=== PATIENT | female | born 1950 | race Caucasian/White ===

== ENCOUNTER 2022-01-03 02:45 | Observation (INO) | payer MEDICARE ==
[2022-01-03] MEDS ORDERED: Morphine 4 MG/ML VIAL ONE ×2 (03:28→04:51)
[2022-01-03] MEDS ORDERED: Ondansetron PF 4 MG/2 ML Vial ONE (03:28)
[2022-01-03 03:30] LABS: #Basophils 0.1 10x3/uL (0.0-0.2); #Eosinphils 0.3 10x3/uL (0.0-0.5); #Monocytes 0.6 10x3/uL (0.0-1.1); #Neutrophils 6.2 10x3/uL (1.5-8.4); %Basophils 0.6 % (0.0-2.0); %Eosinophils 3.5 % (0.0-6.0); %Lymphocytes 16.5 % (18.0-47.0); %Monocytes 7.4 % (0.0-10.0); %Neutrophils 71.7 % (40.0-75.0); Hemoglobin 13.4 g/dL (12.0-15.5); Mean Corpuscular Hemoglobin 29.4 pg (27.0-33.0); Mean Platelet Volume 9.7 fl (7.4-10.4); Platelet Count 235 10x3/uL (150-450); RBC Distribution Width 13.2 % (11.5-14.5); Red Blood Cell (RBC) Count 4.56 10x6/uL (3.90-5.03); White Blood Cell (WBC) Count 8.6 10x3/uL (3.5-10.5)
[2022-01-03 03:52] LABS: ALT (SGPT) 72 U/L (8-55); AST (SGOT) 129 U/L (5-34); Albumin 3.5 g/dL (3.4-4.8); Alkaline Phosphatase 93 U/L (40-110); Anion Gap 18 mmol/L (10-20); BUN (Urea Nitrogen) 19 mg/dL (9.8-20.1); Calc. Creatinine Clearance 0 mL/min (70-130); Carbon Dioxide 24 mmol/L (23-31); Chloride 103 mmol/L (98-107); Glucose 120 mg/dL (83-110); Lipase 18 U/L (8-78); Potassium 3.7 mmol/L (3.5-5.1); Protein, Total 6.5 g/dL (5.8-8.1); Sodium 141 mmol/L (136-145)
[2022-01-03 08:27] VITALS: BMI 29.7
[2022-01-03] MEDS ORDERED: Acetaminophen 325 MG TAB PO PRN (10:10)
[2022-01-03] MEDS ORDERED: Ondansetron PF 4 MG/2 ML Vial IVP PRN (10:11)
[2022-01-03] MEDS ORDERED: hydrALAZINE 20 MG/ML VIAL SLOW IVP PRN (10:11)
[2022-01-03] MEDS ORDERED: Morphine 4 MG/ML VIAL SLOW IVP PRN (10:12)
[2022-01-03 12:05] LABS: Hep B Surf Ag Non-Reactive S/CO (NonReactive)
[2022-01-03 12:16] LABS: HBSAg Index 0.18 S/CO (0-0.99)
[2022-01-03 17:31] LABS: HBCM Index 0.07 S/CO (0-0.79); Hep A IgM AB Non-Reactive (NonReactive); Hep A IgM S/CO 0.23 S/CO (0-0.79); Hep C IgG Ab Non-Reactive (NonReactive); Hep C Index 0.09 S/CO (0-0.79); Hepatitis B Core IgM Abs Non-Reactive (NonReactive)
[2022-01-04 05:51] LABS: #Basophils 0.1 10x3/uL (0.0-0.2); #Eosinphils 0.4 10x3/uL (0.0-0.5); #Monocytes 0.6 10x3/uL (0.0-1.1); #Neutrophils 3.6 10x3/uL (1.5-8.4); %Basophils 0.8 % (0.0-2.0); %Eosinophils 6.4 % (0.0-6.0); %Lymphocytes 27.1 % (18.0-47.0); %Monocytes 9.7 % (0.0-10.0); %Neutrophils 55.7 % (40.0-75.0); Hemoglobin 11.8 g/dL (12.0-15.5); Mean Corpuscular HGB CONC 32.2 g/dL (32.0-36.0); Mean Corpuscular Hemoglobin 29.2 pg (27.0-33.0); Mean Corpuscular Volume 90.6 fl (81.6-98.3); Mean Platelet Volume 10.3 fl (7.4-10.4); Platelet Count 211 10x3/uL (150-450); RBC Distribution Width 13.2 % (11.5-14.5); Red Blood Cell (RBC) Count 4.04 10x6/uL (3.90-5.03); White Blood Cell (WBC) Count 6.4 10x3/uL (3.5-10.5)
[2022-01-04 06:04] LABS: ALT (SGPT) 160 U/L (8-55); AST (SGOT) 100 U/L (5-34); Alkaline Phosphatase 106 U/L (40-110); Anion Gap 15 mmol/L (10-20); BUN (Urea Nitrogen) 18 mg/dL (9.8-20.1); Bilirubin, Total 0.3 mg/dL (0.2-1.2); Calc. Creatinine Clearance 86 mL/min (70-130); Calcium 8.4 mg/dL (7.8-10.44); Carbon Dioxide 26 mmol/L (23-31); Chloride 104 mmol/L (98-107); Globulin 2.8 g/dL (2.4-3.5); Glucose 126 mg/dL (83-110); Potassium 3.8 mmol/L (3.5-5.1); Protein, Total 5.8 g/dL (5.8-8.1); Sodium 141 mmol/L (136-145)
[2022-01-04 08:15] LABS: SARS-CoV-2 NAA Rapid Test Not Detected (NotDetected)
[2022-01-04] MEDS ORDERED: LANSOPRAZOLE 30 MG PO SCH (09:00)
[2022-01-04] MEDS: Loratadine 10 MG TAB PO SCH (09:55)
[2022-01-04] MEDS: Aspirin 81 mg Enteric Coated Tablet PO SCH (09:55)
[2022-01-05 05:12] LABS: ALT (SGPT) 113 U/L (8-55); AST (SGOT) 55 U/L (5-34); Albumin 3.2 g/dL (3.4-4.8); Alkaline Phosphatase 97 U/L (40-110); Anion Gap 15 mmol/L (10-20); BUN (Urea Nitrogen) 13 mg/dL (9.8-20.1); Bilirubin, Total 0.4 mg/dL (0.2-1.2); Calc. Creatinine Clearance 89 mL/min (70-130); Calcium 9.7 mg/dL (7.8-10.44); Carbon Dioxide 28 mmol/L (23-31); Chloride 104 mmol/L (98-107); Globulin 2.7 g/dL (2.4-3.5); Glucose 105 mg/dL (83-110); Protein, Total 5.9 g/dL (5.8-8.1); Sodium 143 mmol/L (136-145)
[2022-01-05 08:37] VITALS: BP 162/77; TEMP 98.5
[2022-01-05] MEDS: Loratadine 10 MG TAB PO SCH (10:22)
[2022-01-05] MEDS: Aspirin 81 mg Enteric Coated Tablet PO SCH (10:22)
== END 2022-01-05 11:58 | disposition home or self-care (01) ==
LOC: CSHERS 02:45 → CSHTELE 06:43
PROVIDERS: ADMIT Student in an Organized Health Care Education/Training Program; ATTEND Internal Medicine
DX: R10.84 Generalized abdominal pain (principal); I10 Essential (primary) hypertension; K21.9 Gastro-esophageal reflux disease without esophagitis; Z79.899 Other long term (current) drug therapy; Z79.82 Long term (current) use of aspirin; Z87.440 Personal history of urinary (tract) infections; K22.70 Barrett's esophagus without dysplasia; Z20.822 Contact with and (suspected) exposure to COVID-19; Z90.49 Acquired absence of other specified parts of digestive tract
CPT/HCPCS: 74177; 76705; 80053 ×3; 80074; 83690; 85025 ×2; 93005; 94760 ×2; 96361; 96374; 96375; 96376 ×2; 99285; G0378 ×3; U0002; 36415; J2270; J2405